=== PATIENT | male | born 1995 | race Two or more races ===

== ENCOUNTER 2017-09-09 23:23 | Emergency (ER) | payer SELFPAY ==
[2017-09-09 23:33] VITALS: BP 107/71; PULSE 70; RESP 18; TEMP 98; O2SAT 100
== END 2017-09-09 23:55 | disposition left against medical advice (07) ==
LOC: C.ER 23:23
DX: Z02.89 Encounter for other administrative examinations (principal); R07.9 Chest pain, unspecified